=== PATIENT | male | born 1950 | race Caucasian/White ===

== ENCOUNTER 2016-05-05 05:11 | Inpatient (IN) | payer MEDICARE, BC ==
[~2016-05-05] VITALS: Ht 180.3 cm; Wt 115.2 kg
[2016-05-05] VITALS (13 sets, daily range): BP systolic 122–143; BP diastolic 70–94
[2016-05-05] MEDS ORDERED: IV SET PRIMARY 1 EA INFUS.SET MC ONE (05:22)
[2016-05-05] MEDS ORDERED: IV LR 1000 ML 1,000 ML ONE (05:22)
[2016-05-05] MEDS ORDERED: SECONDARY IV SET 1 EA INFUS.SET MC ONE ×2 (06:13→15:16)
[2016-05-05] MEDS ORDERED: CEFAZOLIN SODIUM/DEXTROSE,ISO 50 ML IV ONE (06:13)
[2016-05-05] MEDS ORDERED: KETOROLAC TROMETHAMINE INJ 30 MG/ML VIAL ONE (06:23)
[2016-05-05] MEDS ORDERED: BUPIVACAINE MPF 0.5% W/EPI INJ 30 ML VIAL ONE ×2 (06:24→06:57)
[2016-05-05] MEDS ORDERED: BACITRACIN 50000 UNITS/VIAL ONE (06:24)
[2016-05-05] MEDS ORDERED: SEVOFLURANE 250 ML BOTTLE IH ONE (06:56)
[2016-05-05] MEDS ORDERED: MIDAZOLAM HCL 2 MG/2ML VIAL ONE (06:56)
[2016-05-05] MEDS ORDERED: FENTANYL PF 100MCG/2ML AMPUL ONE (06:56)
[2016-05-05] MEDS ORDERED: ROCURONIUM BROMIDE 50 MG/5 ML ONE (06:56)
[2016-05-05] MEDS ORDERED: TRANEXAMIC ACID 3,000 MG in SODIUM CHLORIDE IRRIG SOLUTION 70 ML IR ONE (07:30)
[2016-05-05 07:57] LABS: BASOPHILS % (AUTO) 0.8 % (0.0-2.0); EOSINOPHILS # (AUTO) 0.2 /CMM (0.0-0.7); EOSINOPHILS % (AUTO) 2.7 % (0.0-6.0); HEMATOCRIT 38 % (39-51); HEMOGLOBIN 12.7 g/dL (13.5-17.5); LYMPHOCYTES # (AUTO) 1.3 /CMM (0.8-4.8); LYMPHOCYTES % (AUTO) 20.1 % (20.0-44.0); MEAN CORPUSCULAR HEMOGLOBIN 28 PG (26.0-33.0); MEAN CORPUSCULAR HGB CONC 34 g/dl (31.0-36.0); MEAN CORPUSCULAR VOLUME 82 fL (80-96); MONOCYTES # (AUTO) 0.4 /CMM (0.1-1.30); MONOCYTES % (AUTO) 6.1 % (2.0-12.0); NEUTROPHILS # (AUTO) 4.5 /CMM (1.8-8.9); NEUTROPHILS % (AUTO) 70.3 % (43.0-81.0); PLATELET COUNT (AUTO) 204 /CMM (150-450); RDW COEFFICIENT OF VARIATION 15.3 (11.5-15.0); RED BLOOD CELL COUNT(AUTO) 4.58 MIL/uL (4.5-6.0); WHITE BLOOD COUNT (AUTO) 6.4 K/uL (4.3-11.0)
[2016-05-05] MEDS ORDERED: TYLENOL 650 MG TABLET PO PRN (10:00)
[2016-05-05] MEDS ORDERED: ZOFRAN 4mg/2ML IV PRN (10:00)
[2016-05-05] MEDS ORDERED: IV D5/0.45 NACL 1,000 ML IV PRN (10:00)
[2016-05-05] MEDS ORDERED: SENOKOT 8.6 MG TABLET PO PRN (10:00)
[2016-05-05] MEDS ORDERED: COLACE 250 MG CAPSULE PO PRN (10:00)
[2016-05-05] MEDS ORDERED: BENA20TA2 PO (10:16)
[2016-05-05] MEDS ORDERED: ESCI10TA PO (10:16)
[2016-05-05] MEDS ORDERED: METF500T4 PO (10:16)
[2016-05-05] MEDS ORDERED: TRIA1CAP6 PO (10:16)
[2016-05-05] MEDS ORDERED: CARV12.52 PO (10:16)
[2016-05-05] MEDS ORDERED: CALC-838 PO (10:16)
[2016-05-05] MEDS ORDERED: HYDR-548 PO (10:16)
[2016-05-05] MEDS ORDERED: PHEN37.511 PO (10:16)
[2016-05-05] MEDS ORDERED: DICL75TA5 PO (10:16)
[2016-05-05] MEDS ORDERED: TERA5CAP4 PO (10:16)
[2016-05-05] MEDS ORDERED: GABA-532 PO (10:17)
[2016-05-05] MEDS ORDERED: DEXTROSE 50%-WATER 50 ML DISP.SYRIN IV PRN (11:30)
[2016-05-05] MEDS ORDERED: INSULIN REGULAR, HUMAN 100 UNIT/ML 3 ML VIAL SQ PRN (11:30)
[2016-05-05] MEDS ORDERED: IV SET PRIMARY PUMP SET 1 EA INFUS.SET MC ONE (11:39)
[2016-05-05] MEDS: IV NS 0.9% 1,000 ML IV PRN ×2 (11:50→22:41)
[2016-05-05] MEDS: BLOOD SUGAR DIAGNOSTIC 1 EACH STRIP VI SCH ×3 (11:52→21:32)
[2016-05-05] MEDS ORDERED: BLOOD SUGAR DIAGNOSTIC 1 EACH STRIP IN SCH (12:00)
[2016-05-05] MEDS ORDERED: ANESTHESIA TRAY IN PYXIS 1 EA TRAY MC ONE (14:44)
[2016-05-05] MEDS ORDERED: ANCEF 1 GM/50 ML D5W IV SCH ×2 (15:00)
[2016-05-05] MEDS: ANCEF 1 G in IV D5W 50 ML IV SCH ×2 (15:16→22:42)
[2016-05-05] MEDS: GABAPENTIN 100 MG CAPSULE PO SCH (17:34)
[2016-05-05] MEDS: HYDROCODONE/APAP 5/325MG 1 EACH TABLET PO PRN (19:47)
--- NOTE | 2016-05-05 20:00 | NUR ---
RN INITIAL NOTES PX RECEIVED AWAKE, ALERT, ORIENTED X 3, CONVERSANT, ON ROOM AIR, WITH RIGHT SHOULDER DRESSING AND RIGHT SHOULD SLING, DRESSING INTACT, DRY, CLEAN; ABLE TO MOVE BY SELF; PIV FLUSHABLE WITH SALINE NO S/SX OF INFILTRATION; DENIED SOB, N/V, DIZZINESS; COMPLAINED OF RIGHT SHOULDER PAIN, PAIN MED GIVEN; DISCUSSED PLAN OF CARE. Addendum: 05/05/16 at 2211 by ANGELO CRENSHAW RN RECEIVED REPORT FROM SANDER JARVIS RN.
--- NOTE | 2016-05-05 21:30 | NUR ---
RN NOTES DENIED PAIN; BLOOD SUGAR 140, REFUSED INSULIN, EDUCATED ON ITS NEED.
[2016-05-05] MEDS: *INSULIN REGULAR(HUMULIN R)HUM 100 UNIT/ML VIAL SQ PRN (21:32)
[2016-05-05] MEDS ORDERED: AMBIEN 5 MG TABLET PO PRN (22:00)
[2016-05-05] MEDS ORDERED: DULCOLAX 10 MG/SUPP.RECT RC PRN (22:00)
[2016-05-06] MEDS: HYDROCODONE/APAP 5/325MG 1 EACH TABLET PO PRN ×3 (01:09→17:16)
--- NOTE | 2016-05-06 06:08 | NUR ---
RN NOTES PX CONDITION AND NEURO STATUS UNCHANGED; DENIED PAIN, SOB, N/V; OFFERED SPONGE BATH BUT REFUSED, EDUCATED; ALLOWED SKIN ASSESSMENT, SKIN REMAINED INTACT, DRESSING ON THE RIGHT SHOULD MINIMALLY SOAKED WITH SANGUINOUS SECRETIONS BUT UNCHANGED SINCE START OF SHIFT LAST NIGHT; PIV FLUSHABLE WITH SALINE NO S/SX INFILTRATION. WILL ENDORSE TO NEXT RN.
[2016-05-06] MEDS: BLOOD SUGAR DIAGNOSTIC 1 EACH STRIP VI SCH ×4 (06:32→21:12)
--- NOTE | 2016-05-06 07:30 | NUR ---
MS RN- OPENING PT. WAS A&O X4, BREATHING IS EVEN AND NOT LABORED, PT. DID NOT SHOW SIGNS OF DISTRESS. IV FLUIDS RUNNING, SIDE RAILS UP X2, CALL LIGHT WITH IN REACH, PT. HAS A WOUND DRESSING ON R SHOULDER AT INCISION SITE. THIS IS PT.S INITIAL WOUND DRESSING POST-OP. DRESSING IS DRY AND INTACT. pT. HAS A R ARM SLING.
[2016-05-06 08:00] VITALS: BP 121/86
[2016-05-06] MEDS: ASPIRIN 325 MG TABLET PO SCH ×2 (08:18→17:15)
[2016-05-06] MEDS: CARVEDILOL 12.5 MG TABLET PO SCH (08:19)
[2016-05-06] MEDS: CALCIUM CARB 250MG /VITAMIN D 1 UDTAB PO SCH (08:20)
[2016-05-06] MEDS: BENAZEPRIL HCL 20 MG TABLET PO SCH (08:20)
[2016-05-06] MEDS: GABAPENTIN 100 MG CAPSULE PO SCH ×2 (08:20→16:33)
[2016-05-06] MEDS: TERAZOSIN HCL 5 MG CAPSULE PO SCH (08:21)
[2016-05-06] MEDS: ESCITALOPRAM OXALATE (10 MG) 10 MG TABLET PO SCH (08:21)
[2016-05-06 08:53] LABS: CALCIUM, SERUM 7.6 mg/dL (8.5-10.1); CREATININE 1.6 mg/dL (0.6-1.3); POTASSIUM 4.1 mmol/L (3.5-5.1)
[2016-05-06] MEDS: IV NS 0.9% 1,000 ML IV PRN (10:34)
[2016-05-06 16:00] VITALS: BP 111/75
--- NOTE | 2016-05-06 17:00 | NUR ---
MS RN- PT. BILATERALLY LUNGS CLEAR ON AUSCULTATION, BOWEL SOUNDS PRESENT ON AUSCULTATION.
--- NOTE | 2016-05-06 17:50 | NUR ---
MS RN PT. IS SITTING UP IN CHAIR WITH IV FLUIDS RUNNING. PT. STATES LAST BM WAS MONDAY, INFORMED PT. KNOW WHEN USING THE BATHROOM. CALL LIGHT WITHIN REACH.
--- NOTE | 2016-05-06 19:02 | NUR ---
MS RN- CLOSING PT. A&OX4, PT. AMBULATED FOR 5 MINUTES WITH ASSISTIVE DEVICE (CANE) AND TWO NURSES, STEADY GAIT. BREATHING EVENLY AND UNLABORED ON AMBULATION. AFTER AMBULATING PT IS SITTING IN CHAIR WITH IV RUNNING. PT STATED HE DID NOT HAVE ANY DIZZINESS ON AMBULATION. PT HAS PAIN POST PAIN MEDICATION ADMINISTRATION.
--- NOTE | 2016-05-06 19:40 | NUR ---
MS RN NOTE: PATIENT RESTING IN BED, NO ACUTE DISTRESS NOTED. BREATHING EVEN AND UNLABORED, NO SOB NOTED. HL TO LFA IN PLACE. RIGHT ARM IN SLING. PATIENT DENIES S/S OF HYPER/HYPOGLYCEMIA NOTED. BED LOCKED AND IN LOWEST POSITION, CALL LIGHT IN REACH. WILL CONTINUE TO MONITOR.
[2016-05-06 20:00] VITALS: BP 132/81
[2016-05-06] MEDS ORDERED: HYDROCODONE/APAP 5/325MG 1 EACH TABLET PO PRN (20:00)
--- NOTE | 2016-05-06 21:15 | NUR ---
MS RN NOTE: PATIENT BLOOD SUGAR LEVEL 132 MG/DL, PATIENT TO RECEIVE 2 UNITS OF INSULIN PER SLIDING SCALE. PATIENT DENIES S/S OF HYPER/HYPOGLYCEMIA AT THIS TIME. WILL CONTINUE TO MONITOR.
[2016-05-06] MEDS: *INSULIN REGULAR(HUMULIN R)HUM 100 UNIT/ML VIAL SQ PRN (21:18)
[2016-05-06] MEDS ORDERED: TAMSULOSIN 0.4 MG CAP.SR.24H PO SCH (22:00)
--- NOTE | 2016-05-07 06:45 | NUR ---
MS RN NOTE: PATIENT RESTING IN BED, NO ACUTE DISTRESS NOTED. BREATHING EVEN AND UNLABORED, NO SOB NOTED. HL TO LFA IN PLACE. RIGHT ARM IN SLING. PATIENT BLOOD SUGAR LEVEL 124 MG/DL, NO INSULIN NEED PER SLIDING SCALE. PATIENT DENIES S/S OF HYPER/HYPOGLYCEMIA NOTED. BED LOCKED AND IN LOWEST POSITION, CALL LIGHT IN REACH. WILL ENDORSE TO DAY NURSE TO CONTINUE WITH PLAN OF CARE.
[2016-05-07 06:46] LABS: CALCIUM, SERUM 8.4 mg/dL (8.5-10.1); CREATININE 1.4 mg/dL (0.6-1.3); POTASSIUM 4.7 mmol/L (3.5-5.1)
--- NOTE | 2016-05-07 07:30 | NUR ---
MS/RN Patient received Patient received from rn night. No needs at this time. Call light within reach, will continue to monitor.
[2016-05-07] MEDS: ESCITALOPRAM OXALATE (10 MG) 10 MG TABLET PO SCH (07:44)
[2016-05-07] MEDS: HYDROCODONE/APAP 5/325MG 1 EACH TABLET PO PRN ×2 (07:44→16:28)
[2016-05-07] MEDS: CALCIUM CARB 250MG /VITAMIN D 1 UDTAB PO SCH (07:45)
[2016-05-07] MEDS: ASPIRIN 325 MG TABLET PO SCH ×2 (07:45→16:27)
[2016-05-07] MEDS: CARVEDILOL 12.5 MG TABLET PO SCH (07:45)
[2016-05-07] MEDS: GABAPENTIN 100 MG CAPSULE PO SCH (07:45)
[2016-05-07] MEDS: BLOOD SUGAR DIAGNOSTIC 1 EACH STRIP VI SCH ×2 (07:46→12:21)
[2016-05-07] MEDS: TERAZOSIN HCL 5 MG CAPSULE PO SCH (07:46)
[2016-05-07] MEDS: BENAZEPRIL HCL 20 MG TABLET PO SCH (07:46)
[2016-05-07 08:00] VITALS: BP 134/87
--- NOTE | 2016-05-07 08:35 | NUR ---
MS/RN Medications Morning medications administered along with two norco for pain. Per patient, pain scale is 7/10 to right shoulder. Will monitor effectiveness.
[2016-05-07] MEDS ORDERED: TAMS-12 PO (11:13)
[2016-05-07] MEDS ORDERED: Docusate Sodium PO (11:13)
--- NOTE | 2016-05-07 11:45 | NUR ---
MS/RN Dr Carbajal Order entered by Dr Carbajal for patient to be discharged to home today.
--- NOTE | 2016-05-07 12:31 | NUR ---
MS/RN Blood sugar Blood sugar at noon 114, no coverage needed
--- NOTE | 2016-05-07 13:30 | NUR ---
MS/sludge filtration attendant paperwork Discharge paperwork completed and printed out, copy made of prescription.
--- NOTE | 2016-05-07 14:15 | NUR ---
MS/project manager process development update Spoke with daughter regarding discharge. Stated that she would be here around 4p to take father home. Patient kept informed.
[2016-05-07 16:00] VITALS: BP 103/68
--- NOTE | 2016-05-07 17:57 | NUR ---
MS/adult crossing guard Patient discharged to home with family in stable condition. Heplock and name bands removed. Discharge instructions / education given and understood by both patient and family. All personal belongings with patient. Escorted to main lobby by [employer].
== END 2016-05-07 18:01 | disposition home or self-care (01) | DRG 483 ==
LOC: DS 05:11 → MEDSG2 08:34
PROVIDERS: ADMIT Specialist; ATTEND Student in an Organized Health Care Education/Training Program
PROC: 0RRJ0JZ Replacement of Right Shoulder Joint with Synthetic Substitute, Open Approach (ICD-10-PCS; principal; 2016-05-05 07:36)
DX: M19.011 Primary osteoarthritis, right shoulder (principal); N17.0 Acute kidney failure with tubular necrosis; N18.9 Chronic kidney disease, unspecified; I12.9 Hypertensive chronic kidney disease with stage 1 through stage 4 chronic kidney disease, or unspecified chronic kidney disease; Z96.652 Presence of left artificial knee joint; E66.9 Obesity, unspecified; E11.22 Type 2 diabetes mellitus with diabetic chronic kidney disease; N40.0 Benign prostatic hyperplasia without lower urinary tract symptoms
CPT/HCPCS: 36415; 80048-TC; 82962-TC; 85025-TC; 86850-TC; 87081-TC; 88305-TC; 88311-TC; A4217; A4565; A6402; C1713; J0690; J1815; J1885; J2250; J2405; J2704; J2710; J3010; J3490; J7030; J7060; J7120